=== PATIENT | male | born 1985 | race Caucasian/White ===

== ENCOUNTER 2020-10-08 08:59 | Outpatient (REF) | payer OTHER, SELFPAY | END 2020-10-08 09:00 | disposition home or self-care (01) | LOC: HO.LAB 08:59 | PROVIDERS: Visit Provider Internal Medicine | DX: Z20.828 Contact with and (suspected) exposure to other viral communicable diseases (principal) | CPT/HCPCS: C9803; U0003 ==

== ENCOUNTER 2021-01-04 09:01 | Emergency (ER) | payer OTHER, SELFPAY ==
--- NOTE | ~2021-01-04 | XR_ITS ---
EXAMINATION: XR LUMBOSACRAL SPINE CLINICAL INFORMATION: Back pain, injury COMPARISON: None TECHNIQUE: Three views of the lumbosacral spine. FINDINGS: There is normal lumbar segmentation with 5 nonrib-bearing lumbar vertebrae of normal height and normal lumbar lordosis. There is mild disc narrowing at L5-S1 perhaps with borderline vertebral body spurring. There is no spondylolisthesis or retrolisthesis. No destructive process. There is borderline wedging vertebral body T12 endplates with mild adjacent degenerative disc changes and no paraspinal soft tissue swelling, suggesting chronic finding. Recommend correlation with patient's symptoms and clinical exam. The SI joints and visualized sacrum are unremarkable. XR/XR lumbar spine 2-3V IMPRESSION: 1. Borderline degenerative disc changes L5-S1. 2. No lumbar vertebral compression, fracture, or spondylolisthesis. 3. Borderline wedging T12 endplates with mild adjacent degenerative disc changes suggesting chronic finding. Clinically correlate.
[2021-01-04 11:01] VITALS: BP 149/84; PULSE 75; RESP 18; TEMP 37; O2SAT 100; BMI 29.1
--- NOTE | 2021-01-04 11:19 | ED.BACK ---
HPI - Back Pain/Injury General Chief Complaint: Back Pain/Injury Stated Complaint: back pain, work related Time Seen by Provider: 01/04/21 11:18 Source: patient Mode of arrival: ambulatory Limitations: no limitations History of Present Illness HPI Narrative: 35 yo male here with low back pain status post injury at work. Patient tells me that he was lifting some heavy newspapers yesterday when he felt a burning sensation in his low back. Pain was mild at 1st but throughout the night is increased. No radiation of pain. No numbness or tingling. No saddle anesthesia. No bowel or bladder incontinence. No fevers or chills. The patient is ambulatory with a slow gait Related Data Previous Rx's Medication Instructions Recorded cyclobenzaprine 10 mg PO TID PRN #10 tab 01/04/21 lidocaine [Lidoderm] 1 patch TOPICAL DAILY #15 ea 01/04/21 naproxen 500 mg PO BID PRN #20 tab 01/04/21 Allergies Allergy/AdvReac Type Severity Reaction Status Date / Time No Known Allergies Allergy Unverified 07/14/20 15:12 Review of Systems Review of Systems: Yes all other systems are reviewed and are negative Constitutional: Constitutional: Reports no additional constitutional complaints, Denies body ache(s), Denies chills, Denies fever(s), Denies headache(s) and Denies weakness Eyes: Eyes: Reports no additional eye complaints and Denies change in vision ENT: Reports system reviewed and no additional complaints, except as documented, Denies dizziness, Denies headache(s), Denies nasal congestion, Denies nasal discharge and Denies neck pain Cardiovascular: Cardiovascular: Reports no additional cardiovascular complaints, Denies chest pain, Denies leg edema and Denies dyspnea Respiratory: Respiratory: Reports no additional respiratory complaints, Denies cough and Denies dyspnea Gastrointestinal: Gastrointestinal: Reports no additional gastrointestinal complaints, Denies abdominal pain, Denies diarrhea, Denies nausea and Denies vomiting Genitourinary: Genitourinary: Denies urinary incontinence Musculoskeletal: Musculoskeletal: Reports no additional musculoskeletal complaints, Reports back pain, Denies arthralgias, Denies joint swelling, Denies neck pain, Denies numbness and Denies tingling Integumentary/Breasts: Skin/Breast: Reports system reviewed and no additional complaints, except as docu and Denies rash Neurologic: Reports system reviewed and no additional complaints, except as documented, Denies Abnormal speech present, Denies dizziness, Denies headache(s), Denies numbness, Denies tingling and Denies weakness PMFSH Past Medical History Attestation statement: The following information was validated with the patient. Source: old records reviewed and nursing notes reviewed Surgical History Hx of abdominal surgery Social History Social History Smoked in Last 30 Days: No Use of substances other than those prescribed or required for medical reasons: Yes Substance Use Type: Marijuana Substance Use Frequency: Daily Advance Directives: Yes Advance Directives Information Provided: Yes Advance Directives on File: No Physical Exam Vital Signs: Vital Signs: Last Vital Signs Temp 98.6 F 01/04/21 11:01 Pulse 75 01/04/21 11:01 Resp 18 01/04/21 11:01 BP 149/84 H 01/04/21 11:01 Pulse Ox 100 01/04/21 11:01 Body Mass Index 29.1 Const: General: cooperative, healthy appearing, comfortable and no acute distress Orientation/consciousness: patient oriented x3 Limitations: no limitations HENMT: Head: Yes normal to inspection Ears: hearing grossly normal bilaterally General nose exam: Normal external nose present Face and sinus: Yes normal facial exam Mouth: Normal oral and palatal mucosa present Throat: Yes posterior oropharynx normal Eyes: General: appearance normal, both eyes and all related structures Pupils: Equal, round and reactive pupils present Neck: Neck: Yes normal visual inspection Chest: Chest palpation & inspection: normal inspection of the chest Resp: Effort & Inspection: normal respiratory effort Auscultation: clear to auscultation bilaterally Cardio: Rate: regular rate Rhythm: regular rhythm Peripheral pulses: Peripheral pulses 2+ throughout GI: Inspection: Yes normal to inspection Palpation (GI): Soft to palpation and nontender Auscultation: normal bowel sounds Back/Spine/Pelvis: Other: Lumbar midline tenderness with no step-offs or deformities. Thoracic/Lumbar Spine: thoracic and lumbar spine normal to inspection Skin: General skin exam: no rashes or lesions noted Neuro: General: patient oriented x3, no focal motor deficits and normal sensation to monofilament Cranial nerves: Yes Equal, round and reactive pupils present Cognition (Neuro): normal cognition Speech: No Abnormal speech present Gait exam (Neuro): Assistive device used (Wheelchair) Motor exam (neuro): 5/5 motor strength present throughout Sensory Exam: Normal double simultaneous stimulation for sensation Coordination: [id number] test normal and [id number] test normal Extrem: General: Yes normal to inspection Course Course Course Narrative: 35-year-old male here with back pain status post lifting injury at work. No red flag symptoms or neurological deficits. Will need imaging and analgesia and will reassess 1250-x-rays unremarkable. Patient is now feeling improved and is able to ambulate with a steady gait. Likely lumbar strain. Will have him follow-up with occupational health as this was work related. Reviewed worrisome signs and symptoms of when to return to the emergency department. Comfortable discharge home. MDM - Back Pain/Injury Medical Records Attestation: I reviewed the patient's medical records. Lab Data Attestation: I reviewed the patient's lab results. Imaging Data lumbar xray: Attestation: I personally reviewed and interpreted this imaging study as follows: Radiologist's impression: 1. Borderline degenerative disc changes L5-S1. 2. No lumbar vertebral compression, fracture, or spondylolisthesis. 3. Borderline wedging T12 endplates with mild adjacent degenerative disc changes suggesting chronic finding. Clinically correlate. Discharge Plan Discharge Clinical Impression: Strain of lumbar region Patient Disposition: Home, Self-Care Instructions: Low Back Strain (ED), Lower Back Exercises (ED), Core Strengthening Exercises (ED) Additional Instructions: Heat or ice gentle stretching NO heavy lifting or bending Follow-up with work [facility] [phone] Prescriptions: New cyclobenzaprine 10 mg tablet 10 mg PO TID PRN (Reason: muscle spasm) Qty: 10 RF: 0 lidocaine [Lidoderm] 5 % adhesive patch,medicated 1 patch topical DAILY Qty: 15 RF: 0 naproxen 500 mg tablet 500 mg PO BID PRN (Reason: pain) Qty: 20 RF: 0 Referrals: Physician,None [Primary Care Provider] - 2 days Stand Alone Forms: Work/School Release Interventions: ED Discharge Assessment Last Done: 01/04/21 12:44 Discharge Date/Time: 01/04/21 12:44
[2021-01-04] MEDS: Ketorolac Tromethamine 60 MG/2 ML VIAL IM (11:44)
== END 2021-01-04 12:44 | disposition home or self-care (01) ==
LOC: HO.ED 11:55
PROVIDERS: Emergency Provider Emergency Medicine Emergency Medical Services
DX: S39.012A Strain of muscle, fascia and tendon of lower back, initial encounter (principal); X50.0XXA Overexertion from strenuous movement or load, initial encounter; F12.90 Cannabis use, unspecified, uncomplicated; Y93.89 Activity, other specified; Y92.59 Other trade areas as the place of occurrence of the external cause; Y99.0 Civilian activity done for income or pay
CPT/HCPCS: 72100; 96372; 99283; 99284; J1885

== ENCOUNTER 2022-02-13 12:16 | Emergency (ER) | payer OTHER, SELFPAY ==
--- NOTE | ~2022-02-13 | XR_ITS ---
EXAMINATION: XR WRIST, RIGHT CLINICAL INFORMATION: Pain COMPARISON: None TECHNIQUE: 4 views of the right wrist. FINDINGS: The bones and soft tissues are normal. No fracture. Alignment is anatomic with normal joint spaces. No erosions or abnormal soft tissue calcifications. XR/XR wrist RT 2V IMPRESSION: Normal right wrist.
[2022-02-13 12:33] VITALS: BP 92/60; PULSE 71; RESP 18; O2SAT 99; BMI 25.6
--- NOTE | 2022-02-13 13:51 | ED.EXTPRO ---
HPI - Extremity Problem General Chief complaint: Extremity Injury, Upper Stated complaint: R wrist pain Time Seen by Provider: 02/13/22 13:48 Source: patient Mode of arrival: ambulatory Limitations: no limitations History of Present Illness MD Complaint: joint pain Onset (ago): week(s) (1) Pain Consistency: constant Location: right and other (wrist) Quality: aching and constant Radiation: none Relieving factors: immobilization Exacerbating factors: range of motion and palpation Associated symptoms: denies other symptoms Context: other (repetitive movements at job) Related Data Previous Rx's Medication Instructions Recorded cyclobenzaprine 10 mg tablet 10 mg PO TID PRN #10 tab 01/04/21 lidocaine 5 % topical patch 1 patch TOPICAL DAILY #15 ea 01/04/21 (Lidoderm) naproxen 500 mg tablet 500 mg PO BID PRN #20 tab 01/04/21 cyclobenzaprine 10 mg tablet 10 mg PO TID PRN #14 tab 02/13/22 prednisone 20 mg tablet 40 mg PO DAILY 5 Days #10 tab 02/13/22 Allergies Allergy/AdvReac Type Severity Reaction Status Date / Time No Known Allergies Allergy Unverified 07/14/20 15:12 Review of Systems Review of Systems: Constitutional : No Fever, No Chills ENT/Mouth : No Ear Pain, No Hoarseness, No sore throat Eyes: No Eye Pain, No Swelling, No Redness, No Foreign Body Cardiovascular : No Chest Pain, No SOB Respiratory : No Cough, No Dyspnea Gastrointestinal : No Nausea, No Vomiting, No Diarrhea, No abdominal Pain Genitourinary : No Dysuria, No Hematuria Musculoskeletal : positive joint pain, No Myalgias, No Joint Swelling Skin : No Skin lacerations, No rash Neuro : No Weakness, No Numbness, No Loss of Consciousness, No Dizziness, No Headache PMFSH Past Medical History Attestation statement: The following information was validated with the patient. Medical History No pertinent past medical history Surgical History Hx of abdominal surgery Social History Social History (Updated 02/13/22 @ 14:09 by Rhoda Durham DO) Patient Tobacco Use Status: Never used Tobacco Substance Use Type: Marijuana Advance Directives: No Advance Directives Information Provided: No Physical Exam Vital Signs: Vital Signs: Last Vital Signs Pulse 71 02/13/22 12:33 Resp 18 02/13/22 12:33 BP 92/60 02/13/22 12:33 Pulse Ox 99 02/13/22 12:33 BMI result Body Mass Index 25.6 Appearance: Alert. Oriented X3. No acute distress. Eyes: Pupils equal, round and reactive to light. ENT: Pharynx normal. Neck: Normal inspection. Neck supple. CVS: Pulses normal. Respiratory: No respiratory distress. Abdomen: atraumatic Skin: Skin warm and dry. Normal skin color. Extremities: No lower extremity edema. R wrist ttp along R wrist near thumb area no swelling NV intact + Karine's test Neuro: Oriented X 3. No motor deficit. No sensory deficit. MDM - Extremity (Nontraumatic) MDM Narrative Medical decision making narrative: 36 yo male with no sig PMH had xrays in triage - negative, R wrist tendonitis + karine's test will start on steroids/MRs and splint - anticipate DC home discussed work precautions Procedures Orthopedic Splinting/Casting Injury #1: Side: right Upper Extremity Injury Location: wrist Upper Extremity Immobilizer: wrist splint Additional Comments: NV intact post splint Discharge Plan Discharge Clinical Impression: Tendonitis Patient Disposition: Home, Self-Care Instructions: Tendinitis (ED) Additional Instructions: return to ED for any worsening symptoms or concerns splint x 1 week Prescriptions: New cyclobenzaprine 10 mg tablet 10 mg PO TID PRN (Reason: muscle spasm) Qty: 14 0RF prednisone 20 mg tablet 40 mg PO DAILY 5 Days Qty: 10 0RF No Action cyclobenzaprine 10 mg tablet 10 mg PO TID PRN (Reason: muscle spasm) Qty: 10 0RF lidocaine [Lidoderm] 5 % adhesive patch,medicated 1 patch topical DAILY Qty: 15 0RF Rx Instructions: leave on most painful area for up to 12 hrs naproxen 500 mg tablet 500 mg PO BID PRN (Reason: pain) Qty: 20 0RF Referrals: Physician,None [Primary Care Provider] - 5 days (PCP if not better) Stand Alone Forms: Work/School Release
== END 2022-02-13 14:32 | disposition home or self-care (01) ==
PROVIDERS: Emergency Provider Emergency Medicine
DX: M65.231 Calcific tendinitis, right forearm (principal); Z79.899 Other long term (current) drug therapy
CPT/HCPCS: 29125; 73100; 99283; 99284